=== PATIENT | female | born 1980 | race Caucasian/White ===

== ENCOUNTER 2018-06-01 00:14 | Emergency (ER) | payer SELFPAY ==
[2018-06-01 00:44] VITALS: BMI 29.2
[2018-06-01] MEDS ORDERED: LACTATED RINGERS SOLUTION 1000 ML INFUS.BAG IV ONE (00:55)
[2018-06-01] MEDS ORDERED: ONDANSETRON 4 MG/2 ML VIAL IVPB ONE (00:55)
[2018-06-01] MEDS ORDERED: ONDANSETRON 4 MG/2 ML VIAL ONE (01:07)
--- NOTE | 2018-06-01 01:07 | PDOC ---
Attending Attestation - Resident Resident Name: LeeleeSaDanni - ED Attending Attestation I have performed the following: I have examined & evaluated the patient, The case was reviewed & discussed with the resident, I agree w/resident's findings & plan, Exceptions are as noted - HPI HPI: 06/01/18 01:06 37 yo female p/w upper abdominal pain ,nausea and vomiting,dysuria and flank pain 06/01/18 01:08 - Physicial Exam PE: 06/01/18 01:08 37 yo female w flank and abdominal pain head ncat neck supple lungs cta b/l cvs [id number] abd ++epigastric tenderness,distended +cva tenderness ext no e/c/c skin warm and dry neuro alert,conversant,ambulatory ,no focal neuro deficits - Medical Decision Making 06/01/18 01:12 Diff included uti,pyelo,nephrolithiasis,cholecystitis,pancreatitis plan cbc,lipase,comp,ua,preg,ct scan 06/01/18 01:55
[2018-06-01 01:17] LABS: BASO % 1.6 % (0-2.0); EOS % 2.5 % (0-4.5); LYMPH % 3.7 % (8-40); MEAN PLT VOLUME 8.2 fl (7.5-11.1); MONO % 13.8 % (3.8-10.2); NEUT % 78.4 % (42.8-82.8); PLATELET COUNT 308 K/MM3 (134-434); RDW 13.8 % (11.6-15.6); WHITE BLOOD COUNT 20.2 K/mm3 (4.0-10.0)
[2018-06-01] MEDS ORDERED: morphine CARPU-JECT 4 MG/1 ML DISP.SYRIN IVPUSH ONE (01:18)
[2018-06-01 01:23] LABS: URINE APPEARANCE SLCLOUDY; URINE BILIRUBIN NEGATIVE (<2.0 mg/dL); URINE COLOR LTYELLOW; URINE GLUCOSE (UA) 3+ (NEGATIVE); URINE KETONE 1+ (NEGATIVE); URINE LEUK ESTERASE NEGATIVE (NEGATIVE); URINE NITRITE NEGATIVE (NEGATIVE); URINE PROTEIN 2+ (NEGATIVE); URINE UROBILINOGEN NEGATIVE mg/dL (0.2-1.0)
[2018-06-01 01:24] LABS: HCG,QUALITATIVE URINE Negative
[2018-06-01] MEDS ORDERED: MORPHINE SULFATE 2 MG/ML VIAL ONE (01:25)
--- NOTE | 2018-06-01 01:38 | PDOC ---
History of Present Illness - General Chief Complaint: Pain, Acute Stated Complaint: Flank Pain Time Seen by Provider: 06/01/18 00:39 History Source: Patient, Significant Other Exam Limitations: Language Barrier - History of Present Illness Initial Comments: 06/01/18 01:34 Pt is a 37yo F with no significant PMH presenting to ED with complaints of L sided abdominal pain, L sided flank pain, nausea and 2 episodes of vomiting ( nbnb). Pt states this started around 6pm today. She had similar symptoms in April but it went away. She endorses constant L sided abdominal pain radiating to the back 02/11 with associated nausea and vomiting. She also endorses dysuria, pain with deep inspiration because of the pain in her abdomen. She denies fevers, chills, diarrhea, constipation, blood in the stool, vaginal bleeding, vaginal discharge, history of STD, SOB, substernal chest pain. Last BM was today. LMP was 3 weeks ago. PMH: see hpi PSH: none Meds: none Social: denies Allergies: nkda Past History - Past Medical History Allergies/Adverse Reactions: Allergies Allergy/AdvReac Type Severity Reaction Status Date / Time No Known Allergies Allergy Verified 06/01/18 00:41 - Suicide/Smoking/Psychosocial Hx Smoking History: Never smoked Have you smoked in the past 12 months: No Information on smoking cessation initiated: No Hx Alcohol Use: No Drug/Substance Use Hx: No Review of Systems - Review of Systems Constitutional: Yes: Chills, Loss of Appetite. No: Fever, Weakness HEENTM: No: Symptoms Reported Respiratory: Yes: Shortness of Breath. No: Cough Cardiac (ROS): No: Chest Pain, Lightheadedness, Palpitations, Syncope ABD/GI: Yes: Abdominal Distended, Nausea, Vomiting, Abdominal cramping. No: Constipated, Diarrhea, Rectal Bleeding, Tarry Stools : Yes: Dysuria, Flank Pain. No: Discharge, Frequency, Incontinence, Urgency Musculoskeletal: Yes: Back Pain. No: Joint Pain Integumentary: No: Symptoms Reported Neurological: No: Symptoms reported *Physical Exam - Vital Signs Last Vital Signs Temp Pulse Resp BP Pulse Ox 97.7 F 96 H 18 154/96 98 06/01/18 00:14 06/01/18 00:14 06/01/18 00:14 06/01/18 00:14 06/01/18 00:14 - Physical Exam General Appearance: Yes: Nourished, Severe Distress HEENT: positive: EOMI, MAXWELL. negative: Pale Conjunctivae, Scleral Icterus (R), Scleral Icterus (L) Neck: positive: Trachea midline, Supple. negative: Lymphadenopathy (R), Lymphadenopathy (L) Respiratory/Chest: positive: Lungs Clear, Normal Breath Sounds. negative: Crackles, Rales, Rhonchi, Stridor, Wheezing Cardiovascular: positive: Regular Rhythm, Regular Rate, S1, S2. negative: Edema , JVD, Murmur Vascular Pulses: Carotid (R): 2+, Carotid (L): 2+, Dorsalis-Pedis (R): 2+, Doralis-Pedis (L): 2+ Gastrointestinal/Abdominal: positive: Normal Bowel Sounds, Soft, Tenderness (LUQ >LLQ>epigastric). negative: Distended, Guarding, Rebound Musculoskeletal: positive: CVA Tenderness (L). negative: CVA Tenderness (R) Extremity: positive: Normal Capillary Refill, Pelvis Stable. negative: Coldness , Swelling, Calf Tenderness Integumentary: positive: Normal Color, Dry, Warm Neurologic: positive: revenue cycle manager II-XII NML intact, Fully Oriented, Alert, Normal Mood/ Affect, Normal Response, Motor Strength 5/5 Moderate Sedation - Procedure Monitoring Vital Signs: Procedure Monitoring Vital Signs Temperature 97.7 F 06/01/18 00:14 Pulse Rate 96 H 06/01/18 00:14 Respiratory Rate 18 06/01/18 00:14 Blood Pressure 154/96 06/01/18 00:14 O2 Sat by Pulse Oximetry (%) 98 06/01/18 00:14 ED Treatment Course - LABORATORY CBC & Chemistry Diagram: 06/01/18 01:09 06/01/18 01:09 - ADDITIONAL ORDERS Additional order review: Laboratory Results 06/01/18 01:09 Urine HCG, Qual Negative - RADIOLOGY Radiology Studies Ordered: Category Date Time Status SPIRAL- RENAL-STONE CT [CT] Stat CT Scan 06/01/18 01:19 Ordered - Medications Given in the ED: ED Medications Discontinued Medications Generic Name Dose Route Start Last Admin Trade Name Freq PRN Reason Stop Dose Admin Lactated Ringer's 1,000 ml 06/01/18 00:55 06/01/18 01:17 Lactated Ringers Solution IV 01/28/19 00:56 1,000 ml NOW ONE Administration Morphine Sulfate 2 mg 06/01/18 01:18 06/01/18 01:30 Morphine Injection - IVPUSH 06/01/18 01:19 2 mg ONCE ONE Administration Ondansetron HCl 4 mg 06/01/18 00:55 06/01/18 01:17 Zofran Injection IVPB 06/01/18 00:56 4 mg ONCE ONE Administration Medical Decision Making - Medical Decision Making 06/01/18 01:37 Pt is a 37yo F with no significant PMH presenting to ED with complaints of L sided abdominal pain, L sided flank pain, nausea and 2 episodes of vomiting ( nbnb). Pt states this started around 6pm today. She had similar symptoms in April but it went away. She endorses constant L sided abdominal pain radiating to the back 02/11 with associated nausea and vomiting. She also endorses dysuria, pain with deep inspiration because of the pain in her abdomen. She denies fevers, chills, diarrhea, constipation, blood in the stool, vaginal bleeding, vaginal discharge, history of STD, SOB, substernal chest pain. Last BM was today. LMP was 3 weeks ago. Vitals: wnl PE: LUQ tenderness, L CVA tenderness, slight epigastric tenderness Ddx includes but not limited to nephrolithiasis, pyelonephritis, cholecystitis, pancreatitis, colitis labs, cbc, cmp, lipase, spiral CT 2mg morphine and LR, Zofran. Upreg negative. Sent to CT. Pt returned and vomited. Given10 reglan. 06/01/18 02:57 according to lab, blood looks grossly lipemic, will affect results. Lipase 3000. Likely pancreatitis. Given 0.5 Dilaudid Will redraw after 2L fluids. glucose 400, fingerstick in 100s. WBC 20. Triglycerides [id number]. 06/01/18 04:14 PT woke up in pain. 2mg Dilaudid given. Will redraw labs. *DC/Admit/Observation/Transfer Diagnosis at time of Disposition: Hypertriglyceridemia Pancreatitis Qualifiers: Chronicity: acute Pancreatitis type: unspecified pancreatitis type Acute pancreatitis complication: unspecified Qualified Code(s): K85.90 - Acute pancreatitis without necrosis or infection, unspecified - Discharge Dispostion Disposition: TRANSFER ACUTE CARE/OTHER HOSP Condition at time of disposition: Critical Decision to Admit order: Yes - Referrals - Patient Instructions - Post Discharge Activity
[2018-06-01 01:41] LABS: EPI CELLS FEW /HPF (FEW); URINE HYALINE CAST 3 /lpf; URINE MUCUS RARE
[2018-06-01] MEDS ORDERED: METOCLOPRAMIDE HCL INJECTION 10 MG/2 ML VIAL IVPUSH ONE (01:49)
[2018-06-01] MEDS ORDERED: HYDROmorphone HCL CARPU-JECT 2 MG/1 ML DISP.SYRIN IVPUSH ONE ×3 (01:54→06:30)
[2018-06-01] MEDS ORDERED: SODIUM CHLORIDE 1,000 ML IV STA (02:02)
--- NOTE | 2018-06-01 02:09 | PDOC ---
*Physical Exam - Vital Signs Last Vital Signs Temp Pulse Resp BP Pulse Ox 97.7 F 96 H 18 154/96 98 06/01/18 00:14 06/01/18 00:14 06/01/18 00:14 06/01/18 00:14 06/01/18 00:14 ED Treatment Course - LABORATORY CBC & Chemistry Diagram: 06/01/18 01:09 06/01/18 01:09 - ADDITIONAL ORDERS Additional order review: Laboratory Results 06/01/18 06/01/18 01:09 01:09 Lipase 3701 H Urine Color Ltyellow Urine Appearance Slcloudy Urine pH 5.0 Ur Specific Elmo 1.016 Urine Protein 2+ H Urine Glucose (UA) 3+ H Urine Ketones 1+ H Urine Blood Negative Urine Nitrite Negative Urine Bilirubin Negative Urine Urobilinogen Negative Ur Leukocyte Esterase Negative Urine WBC (Auto) 3 Urine RBC (Auto) <1 Ur Epithelial Cells Few Hyaline Casts 3 Urine Mucus Rare Urine HCG, Qual Negative - Medications Given in the ED: ED Medications Discontinued Medications Generic Name Dose Route Start Last Admin Trade Name Anival PRN Reason Stop Dose Admin Lactated Ringer's 1,000 ml 06/01/18 00:55 06/01/18 01:17 Lactated Ringers Solution IV 06/01/18 00:56 1,000 ml NOW ONE Administration Morphine Sulfate 2 mg 06/01/18 01:18 06/01/18 01:30 Morphine Injection - IVPUSH 06/01/18 01:19 2 mg ONCE ONE Administration Ondansetron HCl 4 mg 06/01/18 00:55 06/01/18 01:17 Zofran Injection IVPB 06/01/18 00:56 4 mg ONCE ONE Administration Medical Decision Making - Medical Decision Making 06/01/18 02:42 I received pt on signout. She has lipemic blood and pancreatitis - lipase is 3000s. 06/01/18 04:32 Patient Name: MIKAL BROWNING THIS IS A PRELIMINARY REPORT FROM [facility] DATE OF SERVICE: 2018-06-01 01:32:58 IMAGES: [id number] EXAM: CT ABDOMEN AND PELVIS WITHOUT CONTRAST Peripancreatic fat stranding, probably acute pancreatitis. No nephrolithiasis, ureterolithiasis or obstructive uropathy. No bladder calculi. Unremarkable gallbladder. No bowel obstruction, colitis, diverticulitis, free fluid or free air. Normal appendix. Hepatomegaly and steatosis. Enlarged uterus. Tiny umbilical hernia containing fat. Hypodense intracardiac blood, which can be seen with anemia. 06/01/18 05:47 Our ICU cannot properly care for the patient. She will be transferred to a tertiary care institution. I am awaiting callback from Dr. Jackson @ the [facility]. 06/01/18 06:02 Dr. Fall at the MICU @ [facility] is aware of the patient. He accepts the patient ; however, no beds in their ICU, so he recommends that the patient goes to our MICU and then when a bed opens up they can complete the trnsfer from our UNIT. 06/01/18 06:33 [facility] ICU bed 7 open for the patient; transfer ALS is in progress *DC/Admit/Observation/Transfer Diagnosis at time of Disposition: Hypertriglyceridemia Pancreatitis Qualifiers: Chronicity: acute Pancreatitis type: unspecified pancreatitis type Acute pancreatitis complication: unspecified Qualified Code(s): K85.90 - Acute pancreatitis without necrosis or infection, unspecified - Discharge Dispostion Disposition: TRANSFER ACUTE CARE/OTHER HOSP Condition at time of disposition: Critical Decision to Admit order: Yes - Referrals - Patient Instructions - Post Discharge Activity
[2018-06-01] MEDS ORDERED: METOCLOPRAMIDE HCL INJECTION 10 MG/2 ML VIAL ONE (02:14)
[2018-06-01 02:15] LABS: GLUCOSE,RANDOM 439 mg/dL (74-106)
[2018-06-01 02:19] LABS: HEMOGLOBIN 13.5 GM/dL (10.7-15.3); RBC 3.74 M/mm3 (3.60-5.2)
[2018-06-01 02:20] LABS: HEMATOCRIT 34.1 % (32.4-45.2); MCH 36.1 pg (25.7-33.7); MCHC 39.6 g/dl (32.0-36.0); MEAN CELL VOLUME 91.1 fl (80-96)
[2018-06-01] MEDS ORDERED: HYDROmorphone HCl 2 MG/ML VIAL ONE ×3 (02:25→06:34)
[2018-06-01 04:05] LABS: ANION GAP 0 MMOL/L (8-16)
[2018-06-01] MEDS ORDERED: LACTATED RINGERS SOLUTION 1,000 ML/1,000 ML INFUS.BAG IV SCH (04:45)
[2018-06-01 04:47] LABS: ACANTHOCYTES 0; ANISOCYTOSIS 0; HELMET CELLS 0; HOWELL-JOLLY BODIES 0; MACROCYTOSIS 0; OVALOCYTE 0; PLATELET ESTIMATE NORMAL; ROULEAU 0; SICKELED CELLS 0; TARGET CELLS 0; TEAR DROP CELLS 0; TOXIC GRANULATION 0
[2018-06-01] MEDS ORDERED: ACETAMINOPHEN 1000 MG/100 ML VIAL (NON FORMULARY) IVPB ONE (05:30)
[2018-06-01 05:31] LABS: MEAN PLT VOLUME 8.6 fl (7.5-11.1); MONO % 53.3 % (3.8-10.2); NEUT % 39.7 % (42.8-82.8); PLATELET COUNT 305 K/MM3 (134-434); RBC 3.44 M/mm3 (3.60-5.2); RDW 13.9 % (11.6-15.6); WHITE BLOOD COUNT 20.6 K/mm3 (4.0-10.0)
[2018-06-01] MEDS ORDERED: ACETAMINOPHEN INJECTION 100 ML IVPB ONE (05:51)
[2018-06-01] MEDS ORDERED: METOPROLOL TARTRATE 5 MG/5 ML VIAL IVPUSH ONE (06:01)
[2018-06-01] MEDS ORDERED: METOPROLOL TARTRATE 5 MG/5 ML VIAL ONE (06:29)
[2018-06-01 07:03] LABS: MCH 36.3 pg (25.7-33.7); MCHC 39.9 g/dl (32.0-36.0)
[2018-06-01 07:04] LABS: HEMATOCRIT 30.1 % (32.4-45.2); MEAN CELL VOLUME 90.1 fl (80-96)
[2018-06-01 07:22] VITALS: BP 155/108; PULSE 102; TEMP 97.8
[2018-06-01 07:32] LABS: CHLORIDE 80 mmol/L (98-107); POTASSIUM 3.8 mmol/L (3.5-5.1); TOT PROT 10.9 g/dl (6.4-8.2)
[2018-06-01 07:42] LABS: SODIUM 113 mmol/L (136-145)
[2018-06-01 07:45] LABS: CHLORIDE 83 mmol/L (98-107); CREATININE 1.8 mg/dL (0.55-1.3)
[2018-06-01 07:48] LABS: POTASSIUM 3.6 mmol/L (3.5-5.1); SODIUM 114 mmol/L (136-145)
[2018-06-01 07:54] LABS: GLUCOSE,RANDOM 447 mg/dL (74-106)
--- NOTE | 2018-06-01 10:46 | EKG ---
Test Reason : Blood Pressure : / mmHG Vent. Rate : 097 BPM Atrial Rate : 097 BPM P-R Int : 182 ms QRS Dur : 074 ms QT Int : 384 ms P-R-T Axes : 057 -13 024 degrees QTc Int : 487 ms NORMAL SINUS RHYTHM PROLONGED QT ABNORMAL ECG NO PREVIOUS ECGS AVAILABLE Confirmed by TOMMIE TAM MD ([id number]) on 06/01/2018 10:46:22 AM Referred By: Confirmed By:TOMMIE TAM MD
[2018-06-01 10:50] LABS: ACANTHOCYTES 0; ANISOCYTOSIS 0; HELMET CELLS 0; HOWELL-JOLLY BODIES 0; MACROCYTOSIS 0; OVALOCYTE 0; PLATELET ESTIMATE NORMAL; ROULEAU 0; SICKELED CELLS 0; TARGET CELLS 0; TEAR DROP CELLS 0; TOXIC GRANULATION 0
== END 2018-06-01 07:52 | disposition short-term general hospital (02) ==
LOC: JER 00:14 → UNDOADMIN 04:03 → JERBED 04:03
PROC: 3E033NZ Introduction of Analgesics, Hypnotics, Sedatives into Peripheral Vein, Percutaneous Approach (ICD-10-PCS; principal; 2018-06-01)
PROC: 3E033GC Introduction of Other Therapeutic Substance into Peripheral Vein, Percutaneous Approach (ICD-10-PCS; 2018-06-01)
PROC: 3E033GC Introduction of Other Therapeutic Substance into Peripheral Vein, Percutaneous Approach (ICD-10-PCS; 2018-06-01)
DX: E78.1 Pure hyperglyceridemia (principal); K85.90 Acute pancreatitis without necrosis or infection, unspecified; R73.9 Hyperglycemia, unspecified
CPT/HCPCS: 36415; 74176; 80053; 81003; 81015; 82962; 83615; 83690; 84478; 84484; 84703; 85025; 87040; 87086; 93005; 93010; 99285-25; J0131; J7030